=== PATIENT | male | born 1955 | race Caucasian/White ===

== ENCOUNTER 2024-05-06 04:04 | Inpatient (IN) | payer MEDICARE, OTHER, SELFPAY ==
[2024-05-06] VITALS (81 sets, daily range): BP systolic 97–135; BP diastolic 54–97; BMI 23.0
--- NOTE | 2024-05-06 02:20 | ED.GENMED ---
History of Present Illness
General
Chief Complaint: Chest Pain
Source: patient and ambulance crew
Exam Limitations: none
Time Seen by Provider: 05/06/24 02:13
Nursing documentation reviewed up to this point in time: agreed with
History of Present Illness
History of Present Illness:
Pleasant 69-year-old male presents with chest pain that began around 11 PM last evening. He states that the pain did not radha so he called 911. He lives alone. Upon arrival, patient had an EKG which showed a STEMI. It was transmitted to us and
a STEMI alert was called. Patient received aspirin and nitroglycerin which seemed to help his symptoms. Patient states that he saw a founder and chief technical officer and had a nuclear stress test years ago but is unsure of the details. Patient was a smoker having
quit in December. He has COPD. He also has hypercholesterolemia, BPH, and several episodes of pneumonia.
Review of Systems
Review of Systems
Allergies reviewed?: Yes
All Other Systems: ROS reviewed and negative except as documented in HPI and ROS
Constitutional: Reports no symptoms
EENT: Reports no symptoms
Respiratory: Reports no symptoms
Cardiac: Reports chest pain
ABD/GI: Reports no symptoms
: Reports no symptoms
Musculoskeletal: Reports no symptoms
Skin: Reports no symptoms
Neurological: Reports no symptoms
Endocrine: Reports no symptoms
Hematologic/Lymphatic: Reports no symptoms
Psychiatric: Reports no symptoms
Phy Exam
General Physical Exam
General Presentation: well appearing and mild distress
General Skin: warm and dry
General Habitus: normal
General Mental: alert
General Hydration: appears well hydrated
ENT Exam
ENT Exam: EOMI, pharynx normal, neck supple and normocephalic
Eye Exam
Eye Exam: PERRL, cornea clear and conjunctiva normal
Cardiovascular Exam
Cardiovascular Exam: regular rate/rhythm, no edema, no murmur and normal peripheral pulses
Pulmonary Exam
Pulmonary Exam: lungs clear, no respiratory distress, no rales, no crackles, no rhonchi, no stridor, no wheezing and no cough
Gastrointestinal Exam
Gastrointestinal Exam: normal bowel sounds, non tender, soft, no organomegaly, no pulsatile mass and non distended
Neurological Exam
Neurological Exam: alert, oriented x3, no motor deficits and speech normal
Musculoskeletal Exam
Musculoskeletal Exam: full ROM and no edema
Skin Exam
Skin Exam: normal color, warm/dry, no rash and no petechia
Psychiatric Exam
Psychiatric Exam: normal mood/affect
Scores
Heart Score for Chest Pain Patients
STEMI patient?: Yes
Course
Orders/Labs/Results
Orders:
Orders
05/06/24 02:12
Electrocardiogram (*1) Urgent
Reason for Study: Chest Pain
05/06/24 02:13
EKG- Treatment ONCE
05/06/24 02:16
Complete Blood Count/With Diff Urgent
Comprehensive Metabolic Panel Urgent
Prothrombin Time Urgent
Troponin I Urgent
05/06/24 02:29
Fentanyl Citrate/Pf [Sublimaze] 100 mcg .ROUTE .STK-MED ONE
Heparin 10,000 units .ROUTE .STK-MED ONE
Heparin 1000 Units/500 ml [Heparin] 1,000 units in 500 ml .ROUTE .STK-MED
Heparin Sodium,Porcine/Ns/Pf [Heparin 2000 Units/1000 ml] 2,000 unit in 1,000 ml .ROUTE .STK-MED
Lidocaine HCl/Pf [Xylocaine-Mpf 1% Vial] 50 mg .ROUTE .STK-MED ONE
Midazolam HCl [Versed] 2 mg .ROUTE .STK-MED ONE
Verapamil Injectable [Isoptin/Verapamil Injection] 5 mg .ROUTE .STK-MED ONE
05/06/24 02:30
Nitroglycerin [Tridil] 1,500 mcg .ROUTE .STK-MED ONE
05/06/24 02:48
Aspirin Chewable [Low Strength Aspirin] 162 mg .ROUTE .STK-MED ONE
Heparin 5,000 units .ROUTE .STK-MED ONE
Ticagrelor [Brilinta] 180 mg .ROUTE .STK-MED ONE
05/06/24 03:05
Amiodarone [Cordarone] 150 mg .ROUTE .STK-MED ONE
05/06/24 03:10
NORepinephrine 4 MG/250 ML [Levophed] 4 mg in 250 ml .ROUTE .STK-MED
05/06/24 03:17
EPTIFIBATIDE 75 mg/100 mL [Integrilin] 75,000 mcg in 100 ml .ROUTE .STK-MED
Eptifibatide [Integrilin] 20 ml .ROUTE .STK-MED
05/06/24 03:19
Phenylephrine HCl/0.9% NaCl [Tristian-Synephrine] 1,000 mcg .ROUTE .STK-MED ONE
05/06/24 03:51
Admit Patient As Directed
Co-Sign Provider:
Level of Care: Inpatient admission
Assign to:: CVICU
Physician / Group: Rolan/SHERLEY
Diagnosis: Lateral STEMI
Patient Condition: Critical
Reason for Hospitalization: Lateral STEMI
Expected length of stay greater than two midnights?: Yes
ELOS- Estimated Length of Stay in days: 5
I certify the patient meets the requirements for IP care: Yes
Reason for Overnight Stay: Standard of Care
Code Status As Directed
Resuscitation Status: Full Code
CARDIAC REHAB CONSULT Routine
Co-Sign Provider:
Type of Cardiac Rehab Referral: Outpatient
Diagnosis: STEMI
Date of Diagnosis/Surgery: 05/06/2024
Referring Provider: Meek Gongora
Acetaminophen [Tylenol] 650 mg PO Q4HPRN PRN
Fentanyl Citrate/Pf [Sublimaze] 50 mcg IV [id number] PRN
Midazolam HCl [Versed] 1 mg IV Q5MPRN PRN
Morphine Sulfate 2 mg IV Q1HPRN PRN
Nitroglycerin Sublingual [Nitrostat (Sublingual)] 0.4 mg SL [id number] PRN
Oxycodone/Acetaminophen [Percocet 5/325] 1 tablet PO Q4HPRN PRN
Activity As Directed
Activity Level: Out of Bed- Chair
Comment: bed/chair rest for 2 hours then out of bed ad belen
Power Distributor Procedure As Directed
Cardiac Cath Procedure: percutaneous coronary intervention
Intake/ Output As Directed
Frequency: Per unit guidelines
Notify MD As Directed
Notify physician if: immediately for chest pain or bleeding from access site(s)
Pressure Bag and Transducer As Directed
Radial Artery Hemostasis Method As Directed
Instructions:: 3 mL out at 2 hour posts placement of band
3 mL out at 2 1/2 hours post placement of band
3 mL out at 3 hours post placement of band
Off at 3 1/2 hours post placement of band
If any oozing or hemotoma occurs:: re-inflate band and call provider
Site Checks As Directed
Check access site for bleeding/hematoma: Yes
Comment: on arrival, Q15min x4, Q30min x2, Q1 hr x2, Q2 hr x2, Q4 hr or per
protocol
Vascular Checks As Directed
Location: distal to access site - pulse check
Frequency: Other
Comment: on arrival, Q15min x4, Q30min x2, Q1 hr x2, Q2 hr x2, Q4 hr or per protocol
Venous Foot Pumps As Directed
Location: Bilateral feet
Vital Signs As Directed
Frequency: Other
Additional Instructions:: on arrival, Q15min x4, Q30min x2, Q1 hr x2, Q2 hr x2, then Q4 hr or per unit
protocol
05/06/24 03:52
DX Deep Vein Thrombosis Video Routine
05/06/24 04:00
0.9% Sodium Chloride 1000 ml [Nss] 1,000 ml IV PER PROTOCOL
Infusion rate in mL/kg/hr:: 1.5
Infusion rate in mL/hr:: 115
Duration of infusion (hours):: 5
Flush (0.9% Sodium Chloride) [Flush (Nss)] See Dose Instructions IV PER PROTOCOL
05/06/24 05:12
Basic Metabolic Panel IN AM
Complete Blood Count/No Diff IN AM
Glycohemoglobin (HgbA1c) Routine
Troponin I Q6H
05/06/24 06:00
Echo 2D MMode Color/Doppler IN AM
Reason for Study: Lateral STEMI
Electrocardiogram (*1) IN AM
Reason for Study: Other
Other Reason for Exam: s/p intervention
Cholesterol Lowering
At Your Request: Full Participation
Cholesterol Lowering: Sodium, 2 Gram
05/06/24 08:00
Aspirin Chewable [Low Strength Aspirin] 81 mg PO DAILY
Atorvastatin [Lipitor] 40 mg PO DAILY
Finasteride [Proscar] 5 mg PO DAILY
Olodaterol HCl [Striverdi Respimat] 2 puff INH R DAILY
Ticagrelor [Brilinta] 90 mg PO BID
Tiotropium [place] 2.5 Mcg [Spiriva Respimat 2.5 Mcg] 2 puff INH R DAILY
05/06/24 10:00
Troponin I Q6H
05/06/24 11:00
EPTIFIBATIDE 75 mg/100 mL [Integrilin] 75,000 mcg in 100 ml IV ORDERED RATE
05/06/24 16:00
Troponin I Q6H
Abnormal Lab Results
05/06/24 05/06/24
02:16 03:30
RBC 4.57 L 10^6/uL
(4.70-6.10)
MCH 31.7 H pg
(27.0-31.0)
Absolute Monos (auto) 0.8 H 10^3/uL
(0.1-0.6)
Monocytes % 12.0 H %
(1.7-9.3)
BUN 26 H mg/dl
(9-20)
Creatinine 0.6 L mg/dL
(0.7-1.3)
Glucose 123 H mg/dl
(70-99)
Troponin I 0.290 H* ng/ml
POC ACT Low Range 324 H Seconds
(116-155)
05/06/24 02:16
05/06/24 02:16
Vital Signs
Initial and Last Documented VS:
Initial Vital Signs
BP
123/81
05/06/24 02:10
Last Documented Vital Signs
Temp Pulse Resp BP Pulse Ox
97.8 F 61 22 102/63 97
05/06/24 05:57 05/06/24 06:40 05/06/24 06:40 05/06/24 06:40 05/06/24 06:40
*Critical Care Note
Total Time (30-74mins, 75-104mins- exclusive of procedures): Not Applicable
comment:
Critical care statement: A total of 15 minutes of critical care time was provided for this patient. This time is separate from time utilized to perform the aforementioned documented procedures. Aggregate critical care time includes only time
during which I was engaged in work directly related to the patient's care, as described above, whether at the bedside or elsewhere in the Emergency Department.
ED Attending Note
-
Portions of this chart may have been created with voice recognition software.� Occasional wrong word or��sound alike� substitutions may have occurred due to the inherent limitations of voice recognition software.
Discharge Plan
Departure
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
Date of Disposition: 05/06/24
Time of Disposition: 02:20
Admit to: blood bank laboratory technician
Presentation/result/management discussed w/ accepting MD/DO: Hospitalist
Condition: Good
Discharge Problem:
Acute ST elevation myocardial infarction (STEMI) of inferior wall
Interventions
Interventions:
*General Assessment Last Done: 05/06/24 02:13
*Neglect/Abuse Screening Last Done: 05/06/24 02:27
ED- Fall Risk Assessment Last Done: 05/06/24 02:25
*Nursing Disposition Last Done: 05/06/24 02:36
ED- Cardiac Assessment Last Done: 05/06/24 02:23
Discharge Date and Time
Discharge Date/Time: 05/06/24 02:36
[2024-05-06 02:22] LABS: % Basophils 0.3 % (0-2); % Eosinophils 4.7 % (0-6); % Immature Granulocytes 0.2 % (0-0.5); % Lymphocytes 25.7 % (20.5-51.1); % Neutrophils 57.1 % (42.2-75.2); Absolute Eosinophils 0.3 10^3/uL (0-0.7); Absolute Lymphocytes 1.6 10^3/uL (1.2-3.4); Absolute Monocytes 0.8 10^3/uL (0.1-0.6); Absolute Neutrophils 3.6 10^3/uL (1.4-6.5); Hematocrit 41.1 % (39.0-52.0); Hemoglobin 14.5 g/dL (13.0-18.0); Mean Corp Hgb Conc. 35.3 g/dL (33.0-37.0); Mean Corpuscular Hgb 31.7 pg (27.0-31.0); Mean Corpuscular Volume 89.9 fL (80.0-94.0); Mean Platelet Volume 9.7 fL (7.4-10.4); Nucleated Red Blood Cells % 0 % (-); Platelet Count 174 10^3/uL (130-400); Red Blood Cell Count 4.57 10^6/uL (4.70-6.10); Red Cell Dist. Width 13.5 % (11.5-14.5); White Blood Cell Count 6.2 10^3/uL (4.8-10.8)
--- NOTE | 2024-05-06 02:25 | HPS.HSE ---
Family Physician
-
Family Physician: Meek Mcmahon M.D.
Chief Complaint
-
Chest Pain
History of Present Illness
69-year-old male with a past medical history of hypertension, hyperlipidemia, tobacco abuse having recently quit after an episode of pneumonia, COPD, BPH and PAD presenting with several hours of chest pain. The patient could not describe exactly
how many hours of chest pain he had been having. He rates the pain at 5/10. EMS was called and performed an EKG en route to the hospital. This EKG was concerning for inferior STEMI. On arrival, EKG was repeated, confirming inferior ST elevation
myocardial infarction. Cardiac Cleaner Furniture was activated for emergent cardiac catheterization.
Recent paperwork from a medical visit was reviewed. The patient was recently started on a course of Augmentin and had previously completed a Medrol Dosepak. He cannot recall why he was given a course of steroids.
Medical History
Past Medical History
Past Medical History: Reports COPD, HTN, Hypercholesterolemia and Other (PAD, PNA, BPH)
Past Surgical History: Reports None
Social History
Tobacco: Former Smoker
Alcohol: None
Drug: None
Family History
Family History: Not pertinent
Allergies / Home Medications
Allergies reflects when Allergies were last updated in [facility].
Home Medications with original date entered in [facility]
Allergy/Medication List:
Home Medications:
Atorvastatin 40 mg daily.
Aspirin 81 mg daily.
Cilostazol 50 mg BID.
Finasteride 5 mg daily.
Umeclidium-Vilanterol inhaler 1 puff daily.
Tamsulosin 0.4 mg daily.
Amoxicillin-Clavulanate
Allergies:
NKDA
Review of Systems
-
History Source: Patient
A 12 point ROS was completed and negative except as noted: Yes
Constitutional: Reports No Symptoms
EENT: Reports No Symptoms
Respiratory: Reports No Symptoms
Cardiac: Reports Chest Pain
Abdomen/GI: Reports No Symptoms
: Reports No Symptoms
Musculoskeletal: Reports No Symptoms
Skin: Reports No Symptoms
Neurological: Reports No Symptoms
Endocrine: Reports No Symptoms
Hematologic/Lymphatic: Reports No Symptoms
Psych: Reports No Symptoms
Physical Exam
Vital Signs
Vital Signs
Temp Pulse Resp BP Pulse Ox
36.7 C 63 16 123/81 93
05/06/24 02:13 05/06/24 02:15 05/06/24 02:15 05/06/24 02:13 05/06/24 02:15
Physical Exam
General: Well Developed, Well Nourished, No Apparent Distress, Comfortable and Conversant
HEENT: NormoCephalic, Anicteric, Moist mucous membranes, Atraumatic, Good Dentition, PERRLA, No Ptosis, Nose Appears Normal, Ears Appear Normal and Neck Nontender
Respiratory: Rhonchi, Non Labored Respirations and Decreased Breath Sounds (RLL)
Cardiac: S1/S2 and Regular Rhythm
Breast: Deferred by me
GI: Soft, Non Tender, Non Distended and Normal Bowel Sounds
Rectal: Deferred by Provider
Genito-urinary: Deferred by me
Musculoskeletal: No Clubbing, No Cyanosis and No Edema
Skin: Warm and Dry
Neuro: AO x 3, No Motor Deficits, Nonfocal/grossly intact and Cranial Nerves Intact
Hematologic/Lymphatic: No Lymphadenopathy
Psych: Calm and Intact Judgment/Insight
Laboratory Results
-
05/06/24 02:16
Data Reviewed
-
Medical Tests (Nuc Med, Echo, EKG etc): Image Personally Visualized and interpreted, Report Reviewed by me and Discussed with Physician
Lab Data: Labs Reviewed by me
Old Records: Reviewed
Impression/Plan
-
Impression/Plan: 69 y/o male with HTN, HLD, PAD, tobacco abuse having recently quit after a bout of PNA and subsequent COPD presenting with inferior STEMI.
#STEMI
-Acute.
-Aspirin given by EMS.
-Patient received ticagrelor, nitroglycerin and heparin in the ER.
-Plan to proceed to center medical and lab director for emergent coronary angiography and ad hoc PCI.
-Consent is signed and on the chart.
-Further instructions to follow.
#HTN
-Chronic, stable.
-We will adjust medications post procedure.
#HLD
-Chronic, stable.
-Check lipid panel.
-High dose, high potency statin.
-Goal LDL < 55.
#PAD
-Chronic, stable.
-Continue cilostazole. We will adjust based on LVEF.
#Tobacco abuse/COPD
-Recently quit.
-Currently getting a course of antibiotics (amoxicillin-clavulanate).
-Continue inhaled corticosteroids/long acting bronchodilators.
#PPx
-SCD's for DVT/VTE prophylaxis.
-No role for PPI at this time.
[2024-05-06 02:33] LABS: ALT (SGPT) 31 U/L (0-50); AST (SGOT) 44 U/L (17-59); Albumin 4.1 g/dl (3.5-5.0); Alkaline Phosphatase 70 U/L (38-126); Blood Urea Nitrogen 26 mg/dl (9-20); Calcium 9.5 mg/dl (8.4-10.2); Carbon Dioxide 28 mmol/L (22-30); Chloride 105 mmol/L (98-107); Estimated Creatinine Clearance > 125 ml/min; Glucose 123 mg/dl (70-99); INR 1.07; PT 13.9 Sec (11.4-14.6); Potassium 4.1 mmol/L (3.5-5.1); Sodium 141 mmol/L (135-145); Total Bilirubin 0.6 mg/dl (0.2-1.3); Total Protein 6.9 g/dl (6.3-8.2); eGFR > 60.00
[2024-05-06 03:35] LABS: ACT-LR - POC 324 Seconds (116-155)
--- NOTE | 2024-05-06 03:56 | ITS.CL.ANGIO ---
Model Home Sales Greeter - Angioplasty
Angioplasty
Procedure Report:
CARDIAC CATHETERIZATION REPORT
Date of Procedure: 05/06/2024
Referring: [facility] emergency room.
INDICATION: ST elevation myocardial infarction.
PROCEDURE:
1. Left heart catheterization.
2. Coronary angiography
3. Successful PCI of the proximal left circumflex.
4. Left ventriculography.
5. Initiation of norepinephrine for hemodynamic support.
6. Temporary exchange of 6 [place] sheath for standard arterial line.
ACCESS:
6 [place] right radial artery.
CATHETERS:
1. 5 [place] JR4.
2. 5 [place] JL 3.5.
3. 6 [place] EBU 3.75 guiding catheter.
4. 5 [place] angled pigtail.
HEMODYNAMIC DATA
Weight (kg): 76.7
AO (s/d/x, mmHg): 120/70/92
LV (s/x mmHg): 123/12
LEFT VENTRICULOGRAPHY: Performed in an RAMESH projection. Moderate to severely dilated left ventricle with global hypokinesis and a double density sign consistent with severe lateral wall hypokinesis. Left ventricular ejection fraction estimated at
35%. There is mild mitral regurgitation. There is no aortic valve insufficiency. The aortic root, visualized ascending aorta and ascending aorta appear normal.
CORONARY ANGIOGRAPHY
Dominance: Right.
Left Main: Normal size, bifurcating vessel. There is no coronary artery disease.
LAD: Normal size vessel giving rise to 2 moderate-sized diagonals. There is a 70% stenosis in the mid LAD and between D1 and D2. There is a 40-50% lesion after the takeoff of D2.
Ramus: Congenitally absent.
Circumflex: Large size, nondominant vessel giving rise to 2 obtuse marginals before terminating as a substantially sized AV groove branch. OM1 is a 1.5 mm vessel supplying the proximal lateral wall. OM 2 is a large vessel that supplies much of
the inferolateral wall. There is a 20% lesion in the proximal circumflex. The circumflex artery is acutely occluded in its midsection, immediately proximal to the origin of OM 2.
RCA: Large size, dominant vessel. There are minor luminal irregularities throughout.
INTERVENTION(S)
1. Successful PCI of the acutely occluded mid circumflex (Xience Skypoint 3.5 x 18 ALPA, postdilated with a 3.5 NC balloon throughout, a 4.0 x 12 NC balloon in the mid section and a 4.5 x 8 NC balloon in the proximal margin) with reduction in
stenosis to 0%, restoring UMA-3 flow.
2. Intracoronary nitroglycerin and initiation of active appetite given thrombus burden and generalized slow flow.
3. Exchange of the 6 [place] radial sheath for a standard arterial line.
Narrative:
The decision was made to proceed with percutaneous coronary intervention. The diagnostic catheter was removed over a wire and a 6Fr EBU 3.75 guiding catheter was advanced to the aortic root and seated in the left main coronary artery. Additional
heparin was given and a Power Turn Flex wire was advanced into the distal circumflex. The thrombotic, 100% mid circumflex lesion was predilated with a 2.0 x 12 semi-compliant balloon to 12 alireza.
Immediately after dilation of the semicompliant balloon, UMA-3 flow was restored to the vessel. The patient lapsed into sustained ventricular tachycardia but was maintaining consciousness and a low blood perfusing pressure. I asked the patient to
cough several times. This terminated the VT and the patient lapsed into AIVR with frequent ectopy. This also resulted in relatively persistent hypotension. The patient was given phenylephrine 100 mcg IV x 1 and IV fluids were opened wide. In
spite of these measures, hypotension persisted. Norepinephrine was started at 5 mcg/kg/min. This was uptitrated to 8 then 10 mcg/kg/min with improvement of blood pressure.
The semi-compliant balloon was removed and a Xience Skypoint 3.5 x 18 drug-eluting stent was advanced. The stent was deployed at 12 atmospheres. The stent balloon was removed. A 3.5 x 12 noncompliant balloon was advanced into the stent and the stent
was postdilated to 16 atmospheres. Angiography confirmed holiness of UMA-3 flow with stent expansion and good stent apposition in the distal margin with mall apposition of the proximal margin. A 4.5 x 8 noncompliant balloon was advanced and
the proximal margin of the stent was dilated to 12 alireza. Angiography showed better apposition, though the mid section transition was somewhat abrupt and hazy. A 4.0 x 12 noncompliant balloon was advanced and the mid section of the stent was dilated
to 14 alireza.
Throughout the course of the case, angiography had revealed sluggish flow within the distal circumflex and LAD. The patient was given several doses of intracoronary nitroglycerin with temporary improvement. This seem to be worsened or exacerbated
after every balloon inflation. Given concern for distal microembolization given the highly thrombotic nature of his presentation, the decision was made to start eptifibatide with a double bolus and drip.
Final angiography was performed in orthogonal views, confirming good stent expansion and an excellent angiographic result. The coronary wire was withdrawn and the guide was disengaged from the artery. The catheter was removed over a standard J-wire.
At this time, given the norepinephrine requirement, I elected to attempt exchange of the 6 [place] radial sheath for a standard arterial line. The access wire was readvanced into the radial artery and the 6 [place] sheath was removed. The arterial
line catheter was advanced over the wire and seated in the right radial artery. The vascular band was applied over top of the arterial line which was subsequently sutured into place. We connected the arterial line to the manifold which showed a
good arterial tracing. Unfortunately, over the course of several minutes, it became clear that the artery would continue to ooze around the arterial line. Even after increasing inflation of the vascular band, the use was persistent. Ultimately,
the arterial line was discontinued and the vascular band was repositioned in standard fashion with good hemostasis.
Closure Device: The 6 [place] sheath was exchanged for a standard arterial line. The vascular band was placed over top to provide hemostasis given the size discrepancy between the 2 catheters. Unfortunately, there was too much oozing around the
new catheter. Ultimately, the catheter was removed and the vascular band was secured in standard fashion.
Radiation (mGy): 644.37
DAP (cm2.Gy): 55.37
Fluoroscopy time (minutes): 8.3
Sedation time (minutes): 60
CONCLUSIONS
1. Right dominant circulation with luminal irregularities in the RCA, a 70% stenosis in the mid LAD between D1 and D2 and a 40-50% lesion after the takeoff of D2, a 20% proximal circumflex lesion and an acute occlusion of the mid circumflex
immediately proximal to the origin of OM 2, status post accessible PCI (Xience Skypoint 3.5 x 18 ALPA, postdilated with a 3.5 NC balloon throughout, a 4.0 x 12 NC balloon in the mid section and a 4.5 x 8 NC balloon in the proximal margin) with
reduction in stenosis to 0% and holiness of UMA-3 flow.
2. Normal filling pressures (LVEDP = 12 mmHg at 76.7 kg).
3. 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 Left trickle ejection fraction estimated at 35%.
4. Severe hypotension requiring norepinephrine for blood pressure support.
RECOMMENDATIONS:
1. Expectant management after cardiac catheterization via right approach.
2. Limited weight bearing on the right wrist for one week.
3. Dual antiplatelet therapy with aspirin anticoagulant for at least 12 months, followed by aspirin definitely.
4. Maintain eptifibatide drip for 18 hours.
5. Aggressive risk factor modification including high-dose, high potency statin.
6. Guideline directed medical therapy as hemodynamics will tolerate.
7. Wean norepinephrine.
8. Echocardiogram ordered and pending.
9. Referral to cardiac rehab.
10. Transfer to CVICU.
Copy to: Meek Gastelum M.D.
Meek Gongora, , FACC, FACP
[2024-05-06 05:30] LABS: Hematocrit 37.5 % (39.0-52.0); Hemoglobin 12.5 g/dL (13.0-18.0); Mean Corp Hgb Conc. 33.3 g/dL (33.0-37.0); Mean Corpuscular Hgb 31.5 pg (27.0-31.0); Mean Corpuscular Volume 94.5 fL (80.0-94.0); Mean Platelet Volume 10.6 fL (7.4-10.4); Platelet Count 182 10^3/uL (130-400); Red Blood Cell Count 3.97 10^6/uL (4.70-6.10); Red Cell Dist. Width 13.2 % (11.5-14.5); White Blood Cell Count 9.9 10^3/uL (4.8-10.8)
[2024-05-06 05:56] LABS: Blood Urea Nitrogen 24 mg/dl (9-20); Calcium 9.2 mg/dl (8.4-10.2); Carbon Dioxide 29 mmol/L (22-30); Chloride 104 mmol/L (98-107); Estimated Creatinine Clearance > 125 ml/min; Glucose 147 mg/dl (70-99); Potassium 3.8 mmol/L (3.5-5.1); Sodium 139 mmol/L (135-145); eGFR > 60.00
--- NOTE | 2024-05-06 06:34 | PTCARENOTE ---
Deflated R radial band at 0538 per protocol 3cc out without complication. Deflated at 0608 per protocol 3 cc out. Oozing at site noted. Band reinflated with 5cc. Oozing stopped. CT BALLER TENDER notified. Advised to maintain band at current pressure.
--- NOTE | 2024-05-06 06:36 | PTCARENOTE ---
Received patient at 0440 from feed mill lab technician. Patient on bedrest following cardiac cath. Patient is AOx4, follows commands appropriately, moves all extremities. Pupils are 3mm each react equally and briskly to light. Lung sounds are clear and equal
bilaterally. Patient is on 2L via NC with saO2 at 98%. Heart sounds have a regular rate and rhythm. Patient is SR to SB with occasional PVC noted. Patient has normal palpable radial pulses. The R hand is somewhat cool and pale cap refill noted to be
greater than 2 seconds. Patient has active BS throughout all four quadrants, patient reports they void without difficulty. Patient ordered cholesterol lowering diet with 2g Na restriction. Patient has ecchymotic RUE and LUE with black/red
ecchymosis. Patient has 18G L AC and 18G L wrist. Patient has the following gtts: integrilin@12 and Levo@10. VSS. Patient has no complaints.
--- NOTE | 2024-05-06 06:43 | PTCARENOTE ---
Addendum entered by Chaparro Wren RN 05/06/24 06:59:
Initial assessment at 0440
Original Note:
Received patient at 0440 from labourers. Patient on bedrest following cardiac cath. 2xR Radial bands in place to seal puncture. Patient is AOx4, follows commands appropriately, moves all extremities. Pupils are 3mm each react equally and briskly to
light. Lung sounds are clear and equal bilaterally. Patient is on 2L via NC with saO2 at 98%. Heart sounds have a regular rate and rhythm. Patient is SR to SB with occasional PVC noted. Patient has normal palpable radial pulses. The R hand is
somewhat cool and pale cap refill noted to be greater than 2 seconds. Patient has active BS throughout all four quadrants, patient reports they void without difficulty. Patient ordered cholesterol lowering diet with 2g Na restriction. Patient has
ecchymotic RUE and LUE with black/red ecchymosis. Patient has 18G L AC and 18G L wrist. Patient has the following gtts: integrilin@12 and Levo@10. VSS. Patient has no complaints.
--- NOTE | 2024-05-06 07:08 | W.PN.CD ---
Today's Communication / Plan
-
Slow wean of norepinephrine.
Echocardiogram ordered and pending.
Expectant management post STEMI.
Staged interrogation/PCI of the LAD on Thursday.
Impression / Plan
-
Impression/Plan: 69 y/o male with HTN, HLD, PAD, tobacco abuse having recently quit after a bout of PNA and subsequent COPD presenting with inferior STEMI, found to have acute LCx occlusion, residual LAD disease and combined ischemic/non-ischemic
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
#STEMI
-Acute.
-S/P PCI of the mLCX (Xience Skypoint 3.5 x 18 ALPA, post dilated with a 3.5 NCB throughout, 4.0 NCB in the mid stent and 4.5 NCB in the proximal stent).
-Procedure complicated by VT, terminated by cough. Amiodarone 150 mg and Mg 2g given intraprocedure.
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
-Slow wean of norepinephrine.
-DAPT with aspirin and ticagrelor. Case management consult.
-Eptifabitide @ 2 mcg x 18 hours.
#Residual CAD
-Cath shows tandem 70%, 40-50% mLAD lesions.
-Favor interrogation/revascularization on 05/09/2024.
#Cardiomyopathy
-New diagnosis.
-LVEF = 35% on V-Gram.
-LVEF seems out of proportion to STEMI.
-Wean norepinephrine and start GDMT.
#HTN
-Chronic, stable.
-We will adjust medications as hemodynamics allow.
#HLD
-Chronic, stable.
-Check lipid panel.
-High dose, high potency statin.
-Goal LDL < 55.
#PAD
-Chronic, stable.
-Continue cilostazole. We will adjust based on LVEF.
#Tobacco abuse/COPD
-Recently quit.
-Currently getting a course of antibiotics (amoxicillin-clavulanate).
-Continue inhaled corticosteroids/long acting bronchodilators.
#PPx
-SCD's for DVT/VTE prophylaxis.
-No role for PPI at this time.
#Dispo
-IVU Status.
-Full code.
Subjective/Interval history:
STEMI yesterday.
PCI complicated by hypotension requiring norepinephrine and VT requiring a bolus of amiodarone.
DATA:
Cardiac Catheterization/PCI, 05/06/2024:
CONCLUSIONS
1. Right dominant circulation with luminal irregularities in the RCA, a 70% stenosis in the mid LAD between D1 and D2 and a 40-50% lesion after the takeoff of D2, a 20% proximal circumflex lesion and an acute occlusion of the mid circumflex
immediately proximal to the origin of OM 2, status post accessible PCI (Xience Skypoint 3.5 x 18 ALPA, postdilated with a 3.5 NC balloon throughout, a 4.0 x 12 NC balloon in the mid section and a 4.5 x 8 NC balloon in the proximal margin) with
reduction in stenosis to 0% and adventist of UMA-3 flow.
2. Normal filling pressures (LVEDP = 12 mmHg at 76.7 kg).
3. 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 Left trickle ejection fraction estimated at 35%.
4. Severe hypotension requiring norepinephrine for blood pressure support.
Physical Exam
Vital Signs/Labs
Vital Signs
Temp Pulse Resp BP Pulse Ox
36.6 C 61 22 102/63 97
05/06/24 05:57 05/06/24 06:40 05/06/24 06:40 05/06/24 06:40 05/06/24 06:40
05/04/24 05/05/24 05/06/24
11:59 11:59 11:59
Actual Weight 77 kg
05/06/24 05:12
05/06/24 05:12
PT 13.9 Sec (11.4-14.6) 05/06/24 02:16
INR 1.07 05/06/24 02:16
LAB Results
05/06/24 05/06/24
02:16 05:12
Troponin I 0.290 H* 10.900 H* D
Physical Exam
Constitutional: No acute distress and Comfortable
EENT: Anicteric and Moist mucous membranes
Cardiovascular: Rhythm & rate is regular, Pedal edema is absent, JVD pressure is normal, S1S2 is normal and Murmur/rub/gallop absent
Respiratory: Respiratory effort normal, Wheeze Absent, Crackles Absent and Rhonchi Present
GI: Soft, Distention absent, Flat, Non tender and Normal bowel sounds
Neuro/Psych: AO x 3
Other: Cath Site (Right radial access site is under a vascular band.)
Data Reviewed
-
Date of Service: May 06, 2024
Medical Decision Making: Reviewed Test Results, Tests Ordered, Independent Historian Assessment, Test Interpretation and Review of Case with other Provider
EKG: Tracing Personally Visualized and interpreted and Report Reviewed by me
Echo: Ordered by me
Medical Tests (PFT, Pathology etc): Image Personally Visualized and interpreted, Report Reviewed by me and Discussed with Patient
Labs: Labs Reviewed by me and Labs Ordered by me
Old Records: Reviewed
[2024-05-06] MEDS: STRIVERDI RESPIMAT 2 PUFF INH (07:27)
[2024-05-06] MEDS: SPIRIVA RESPIMAT 2.5 MCG 2 PUFF INH (07:28)
--- NOTE | 2024-05-06 07:45 | PTCARENOTE ---
Assumed care of patient. Walking rounds completed with previous RN. Pt assessed while he was lying in bed. Pt alert and oriented x4. Pt denies pain, shortness of breath, and nausea. Pt reports anxiety, emotional support provided. SR with frequent
PVCs and 12 beat run VT, Dr. Gongora notified. HR in the 70s. BP supported with levophed, titrated to support MAP >65 as per orders. Bilateral radial pulses palpable. Bilateral DP pulses present via doppler. +1 edema in b/l ankles and right wrist.
POX 98% on 2L NC. Pt states he wears 2L NC O2 at home when sleeping. Increased anxiety when discussing removing o2 at this time, titrated to 1L for comfort. Abdomen soft, round, nontender. +BS. Pt reports diminished appetite. Pt voided small amount
of yellow urine in the urinal. Reports small frequent urination at home as well. Right wrist cath site with TR band x2 in place. Upper TR band with no air, removed. Pt tolerated. No bleeding from site noted. Lower TR band intact and 3ml air
released. No bleeding noted. B/l hands and arms ecchymotic. Left arm 18g PIV x2 intact. Integrilin gtt infusing at 2mcg/kg/min. Levo titrating as per orders. See MAR for medication administration. See worklist for complete nursing assessment. Plan
of care reviewed and patient in agreement.
[2024-05-06] MEDS: LOW STRENGTH ASPIRIN 81 MG PO (07:47)
[2024-05-06] MEDS: BRILINTA 90 MG PO ×2 (07:47→20:10)
[2024-05-06] MEDS: PROSCAR 5 MG PO (07:47)
[2024-05-06] MEDS: LIPITOR 40 MG PO (07:47)
[2024-05-06 09:31] LABS: HDL Cholesterol 54 mg/dl; Total Cholesterol 75 mg/dl (50-199)
[2024-05-06 09:43] LABS: Triglyceride < 30 mg/dl (10-149)
--- NOTE | 2024-05-06 10:05 | CARDSERVLU ---
Echocardiogram with Lumason completed after protocol screening completed. Allergies verified.
Patent IV site: ___left AC__
IV site flushed with 0.9% NaCl pre and post administration.
Diluted bolus method utilized to enhance visualization of ventricular galvin.
Total volume given: _6.0___ mL
Patient tolerated all procedures well without complications.
[2024-05-06 10:07] LABS: Glycohemoglobin (HgbA1c) 5.3 % (4.0-5.6)
[2024-05-06] MEDS: INTEGRILIN 100 IV ×2 (10:29→18:06)
--- NOTE | 2024-05-06 10:50 | PTCARENOTE ---
Cath FISHER CRAB at bedside to visualize right radial cath site. Area ecchymotic. Good pulse. 2mL air released from TR band as per her order. No oozing noted. Pt tolerated.
--- NOTE | 2024-05-06 11:35 | CM ---
Reviewed chart. Met with Mr. Alonso to review discharge plans. He states prior to admission he resides alone in a spilt level home without any steps to enter. He states he has eight steps to get to each level. He states prior to admission he was
independent with ambulation and adls. He states he has home 02 that he uses at night. He states he has a prescription plan with [employer]. Telephone call to [employer] to check on his coverage for Brilinta 90 mg po bid. He has meet his deductible and
his co-pay would be $100.00 a month. If he goes to [facility] or does mail order his co-pay would be $69.63. Medical work-up in progress. The discharge plan is to return home when medically stable.
--- NOTE | 2024-05-06 12:00 | PTCARENOTE ---
received report from previous RN. pt resting in bed, AAOx3- denies pain. SR with pvcs on telemetry heart rate in 60s. radial pulses palpable. DP pulses dopplered. pt reports neuropathy in lower extremities. +1 edema in lower extremities. Right
radial TR band intact, ecchymotic. Pt on 1L nasal cannula, sat 95-97%. lung sounds clear. active bowel sounds. tolerating diet. voiding in urinal clear yellow urine. Integrilin infusing per order. see worklist for full nursing assessment and
interventions.
[2024-05-06] MEDS: TYLENOL 650 MG PO (15:35)
[2024-05-06] MEDS: PEPCID 20 MG PO (15:36)
--- NOTE | 2024-05-06 16:00 | PTCARENOTE ---
vitals stable. troponin drawn and sent. pt reports mild stiff neck- prn tylenol given. TR band removed, no bleeding noted, dressing placed. right hand/arm ecchymotic, +radial pulse. no further changes in assessment noted.
--- NOTE | 2024-05-06 20:30 | PTCARENOTE ---
Patient received resting in bed watching television. Patient A+A+Ox3. No neurological deficits noted. No c/o headache, dizziness or lightheadedness. Brilinta 90 mg PO given. Patient continues on Integrilin gtt. O2 2L via NC. SaO2 96%. No c/o
SOB. Sinus Bradycardia to Sinus Rhythm. Occasional PVC. Heart rate 50-60's. Blood pressure 123/81 (91). Patient with no c/o chest pain, pressure or discomfort. Normoactive bowel sounds. No BM. No c/o nausea. No vomiting. Voiding without
difficulty. Patient with no c/o back or flank pain. Patient s/p Right Radial TR Band - Positive, strong right radial pulse - Right hand, wrist, forearm ecchymotic - Positive circulation, sensation and mobility to right upper extremity - No c/o
pain, discomfort, numbness or tingling. Bilateral pedal/ankle region with edema. Afebrile. Assessment as documented.
[2024-05-07] VITALS (11 sets, daily range): BP systolic 90–121; BP diastolic 54–73; BMI 22.0
--- NOTE | 2024-05-07 01:00 | PTCARENOTE ---
Patient sleeping without difficulty. No further changes from previous assessment.
--- NOTE | 2024-05-07 05:15 | PTCARENOTE ---
Patient A+A+Ox3. No neurological deficits noted. AM lab work collected and sent. Patient given CHG bath and linens changed. OOB to chair. Standing scale weight 73.6 kg. No c/o pain or discomfort. No c/o headache, dizziness or lightheadedness.
Assessment/Interventions as documented.
[2024-05-07 05:47] LABS: Blood Urea Nitrogen 16 mg/dl (9-20); Calcium 8.7 mg/dl (8.4-10.2); Carbon Dioxide 28 mmol/L (22-30); Chloride 107 mmol/L (98-107); Estimated Creatinine Clearance 121 ml/min; Glucose 89 mg/dl (70-99); Magnesium 2.1 mg/dl (1.6-2.3); Potassium 4.1 mmol/L (3.5-5.1); Sodium 138 mmol/L (135-145); eGFR > 60.00
[2024-05-07] MEDS: SPIRIVA RESPIMAT 2.5 MCG 2 PUFF INH (07:46)
[2024-05-07] MEDS: STRIVERDI RESPIMAT 2 PUFF INH (07:47)
[2024-05-07] MEDS: LIPITOR 40 MG PO (08:50)
[2024-05-07] MEDS: LOW STRENGTH ASPIRIN 81 MG PO (08:50)
[2024-05-07] MEDS: PROSCAR 5 MG PO (08:51)
[2024-05-07] MEDS: BRILINTA 90 MG PO ×2 (08:51→19:37)
[2024-05-07] MEDS: PEPCID 20 MG PO (08:51)
--- NOTE | 2024-05-07 09:18 | PTCARENOTE ---
Patient received from beater out resting comfortably oob in chair, AAO X 3, denies pain. NSR via cm, SaO2 @ 97% on RA. R wrist procedural site cdi, ecchymotic, pulse palp. Assisted w/rolling walker to bathroom, am care performed. Settled to chair,
breakfast obtained. Patient updated to plan of care for the day, in agreement. See work list for full assessment and interventions performed.
--- NOTE | 2024-05-07 09:25 | W.PN.CD ---
Today's Communication / Plan
-
Continue DAPT
Blood pressures remain relatively low and limits meds
-Plan interrogation/revascularization [place] 05/09/2024.
Impression / Plan
-
Impression/Plan: 69 y/o male with HTN, HLD, PAD, tobacco abuse having recently quit after a bout of PNA and subsequent COPD presenting with inferior STEMI, found to have acute LCx occlusion, residual LAD disease and combined ischemic/non-ischemic
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
#STEMI
-Acute.
-S/P PCI of the mLCX (Xience Skypoint 3.5 x 18 ALPA, post dilated with a 3.5 NCB throughout, 4.0 NCB in the mid stent and 4.5 NCB in the proximal stent).
-Procedure complicated by VT, terminated by cough. Amiodarone 150 mg and Mg 2g given intraprocedure.
- residual LAD disease. Plan for PCI LAD 05/09/24
-DAPT with aspirin and ticagrelor.
-BP and HR limiting BB,or SUKHWINDER at this time
#Residual CAD
-Cath shows tandem 70%, 40-50% mLAD lesions.
-Plan interrogation/revascularization on 05/09/2024.
#Cardiomyopathy
-New diagnosis.
-LVEF = 35% on V-Gram.
-Technically difficult echo. Estimated ejection fraction 40%.
-LVEF seems out of proportion to STEMI.
- GDMT. As blood pressure tolerates.
#HTN
-Chronic, stable.
-We will adjust medications as hemodynamics allow.
#HLD
-Chronic, stable.
-Check lipid panel.
-High dose, high potency statin.
-Goal LDL < 55.
#PAD
-Chronic, stable.
-Continue cilostazole. We will adjust based on LVEF.
#Tobacco abuse/COPD
-Recently quit.
-Currently getting a course of antibiotics (amoxicillin-clavulanate).
-Continue inhaled corticosteroids/long acting bronchodilators.
Subjective/Interval history:
STEMI yesterday.
PCI complicated by hypotension requiring norepinephrine and VT requiring a bolus of amiodarone.
DATA:
Cardiac Catheterization/PCI, 05/06/2024:
CONCLUSIONS
1. Right dominant circulation with luminal irregularities in the RCA, a 70% stenosis in the mid LAD between D1 and D2 and a 40-50% lesion after the takeoff of D2, a 20% proximal circumflex lesion and an acute occlusion of the mid circumflex
immediately proximal to the origin of OM 2, status post accessible PCI (Xience Skypoint 3.5 x 18 ALPA, postdilated with a 3.5 NC balloon throughout, a 4.0 x 12 NC balloon in the mid section and a 4.5 x 8 NC balloon in the proximal margin) with
reduction in stenosis to 0% and nondenominational of UMA-3 flow.
2. Normal filling pressures (LVEDP = 12 mmHg at 76.7 kg).
3. 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 Left trickle ejection fraction estimated at 35%.
4. Severe hypotension requiring norepinephrine for blood pressure support.
Physical Exam
Vital Signs/Labs
Vital Signs
Temp Pulse Resp BP Pulse Ox
98 F 69 16 101/61 97
05/07/24 07:41 05/07/24 09:04 05/07/24 07:47 05/07/24 08:44 05/07/24 09:07
05/06/24 05/07/24 05/08/24
06:59 06:59 06:59
Actual Weight 77 kg 73.6 kg
05/06/24 05:12
05/07/24 04:57
PT 13.9 Sec (11.4-14.6) 05/06/24 02:16
INR 1.07 05/06/24 02:16
Magnesium 2.1 mg/dl (1.6-2.3) 05/07/24 04:57
Triglycerides < 30 mg/dl (10-149) 05/06/24 05:12
LDL Cholesterol, Calc mg/dl 05/06/24 05:12
VLDL Cholesterol, Calc mg/dl (0-30) 05/06/24 05:12
HDL Cholesterol 54 mg/dl 05/06/24 05:12
LAB Results
05/06/24 05/06/24 05/06/24
02:16 05:12 10:28
Troponin I 0.290 H* 10.900 H* D 62.500 H* D
05/06/24
15:46
Troponin I 51.800 H*
Physical Exam
Constitutional: No acute distress
Cardiovascular: Rhythm & rate is regular and Other (radial cath site is fine)
Respiratory: Respiratory effort normal
GI: Soft
Neuro/Psych: Alert
Data Reviewed
-
Date of Service: May 07, 2024
Medical Decision Making: Reviewed Test Results
EKG: Report Reviewed by me
Echo: Report Reviewed by me
X-Ray/CT/US/MRI/NUC/PET: Report Reviewed by me
Medical Tests (PFT, Pathology etc): Report Reviewed by me
--- NOTE | 2024-05-07 11:43 | PTCARENOTE ---
VS obtained, assessment stable. Patient resting comfortably, denies pain. Lunch ordered.
--- NOTE | 2024-05-07 16:23 | PTCARENOTE ---
VS obtained, assessment unchanged. Patient oob, ambulating ad belen, denies pain. For transfer to IVU, updated.
[2024-05-08 04:21] VITALS: BP 104/61
[2024-05-08] MEDS: TYLENOL 650 MG PO ×2 (04:26→19:32)
[2024-05-08 05:14] LABS: Blood Urea Nitrogen 21 mg/dl (9-20); Calcium 8.3 mg/dl (8.4-10.2); Carbon Dioxide 30 mmol/L (22-30); Chloride 107 mmol/L (98-107); Estimated Creatinine Clearance 104 ml/min; Glucose 86 mg/dl (70-99); Potassium 3.9 mmol/L (3.5-5.1); Sodium 140 mmol/L (135-145); eGFR > 60.00
--- NOTE | 2024-05-08 07:03 | W.PN.CD ---
Today's Communication / Plan
-
-Plan interrogation/revascularization on 05/09/2024.
Impression / Plan
-
Impression/Plan: 69 y/o male with HTN, HLD, PAD, tobacco abuse having recently quit after a bout of PNA and subsequent COPD presenting with inferior STEMI, found to have acute LCx occlusion, residual LAD disease and combined ischemic/non-ischemic
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
#STEMI
-Acute.
-S/P PCI of the mLCX (Xience Skypoint 3.5 x 18 ALPA, post dilated with a 3.5 NCB throughout, 4.0 NCB in the mid stent and 4.5 NCB in the proximal stent).
-Procedure complicated by VT, terminated by cough. Amiodarone 150 mg and Mg 2g given intraprocedure.
- residual LAD disease. Plan for PCI LAD 05/09/24
-DAPT with aspirin and ticagrelor.
-BP and HR limiting BB,or SUKHWINDER at this time
#Residual CAD
-Cath shows tandem 70%, 40-50% mLAD lesions.
-Plan interrogation/revascularization on 05/09/2024.
#Cardiomyopathy
-New diagnosis.
-LVEF = 35% on V-Gram.
-Technically difficult echo. Estimated ejection fraction 40%.
-LVEF seems out of proportion to STEMI.
- GDMT. As blood pressure tolerates.
#HTN
-Chronic, stable.
-We will adjust medications as hemodynamics allow.
#HLD
-Chronic, stable.
-Check lipid panel.
-High dose, high potency statin.
-Goal LDL < 55.
#PAD
-Chronic, stable.
-Continue cilostazole. We will adjust based on LVEF.
#Tobacco abuse/COPD
-Recently quit.
-Currently getting a course of antibiotics (amoxicillin-clavulanate).
-Continue inhaled corticosteroids/long acting bronchodilators.
Subjective/Interval history:
STEMI yesterday.
PCI complicated by hypotension requiring norepinephrine and VT requiring a bolus of amiodarone.
DATA:
Cardiac Catheterization/PCI, 05/06/2024:
CONCLUSIONS
1. Right dominant circulation with luminal irregularities in the RCA, a 70% stenosis in the mid LAD between D1 and D2 and a 40-50% lesion after the takeoff of D2, a 20% proximal circumflex lesion and an acute occlusion of the mid circumflex
immediately proximal to the origin of OM 2, status post accessible PCI (Xience Skypoint 3.5 x 18 ALPA, postdilated with a 3.5 NC balloon throughout, a 4.0 x 12 NC balloon in the mid section and a 4.5 x 8 NC balloon in the proximal margin) with
reduction in stenosis to 0% and episcopal of UMA-3 flow.
2. Normal filling pressures (LVEDP = 12 mmHg at 76.7 kg).
3. 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 Left trickle ejection fraction estimated at 35%.
4. Severe hypotension requiring norepinephrine for blood pressure support.
Physical Exam
Vital Signs/Labs
Vital Signs
Temp Pulse Resp BP Pulse Ox
98.4 F 73 16 104/61 93
05/08/24 04:00 05/08/24 04:21 05/08/24 04:00 05/08/24 04:21 05/07/24 22:58
05/07/24 05/08/24 05/09/24
06:59 06:59 06:59
Actual Weight 73.6 kg
05/06/24 05:12
05/08/24 04:24
PT 13.9 Sec (11.4-14.6) 05/06/24 02:16
INR 1.07 05/06/24 02:16
Magnesium 2.1 mg/dl (1.6-2.3) 05/07/24 04:57
Triglycerides < 30 mg/dl (10-149) 05/06/24 05:12
LDL Cholesterol, Calc mg/dl 05/06/24 05:12
VLDL Cholesterol, Calc mg/dl (0-30) 05/06/24 05:12
HDL Cholesterol 54 mg/dl 05/06/24 05:12
LAB Results
05/06/24 05/06/24 05/06/24
02:16 05:12 10:28
Troponin I 0.290 H* 10.900 H* D 62.500 H* D
05/06/24
15:46
Troponin I 51.800 H*
Physical Exam
Constitutional: No acute distress
Cardiovascular: Rhythm & rate is regular
Respiratory: Respiratory effort normal
GI: Soft
Neuro/Psych: Alert
Other: Cath Site (fine)
Data Reviewed
-
Date of Service: May 08, 2024
Medical Decision Making: Reviewed Test Results and Review of Case with other Provider (reviewed issues with nurse)
Medical Tests (PFT, Pathology etc): Report Reviewed by me
Labs: Labs Reviewed by me
[2024-05-08] MEDS: SPIRIVA RESPIMAT 2.5 MCG 2 PUFF INH (07:10)
[2024-05-08] MEDS: STRIVERDI RESPIMAT 2 PUFF INH (07:11)
[2024-05-08 08:01] VITALS: BP 118/77
[2024-05-08] MEDS: PROSCAR 5 MG PO (08:19)
[2024-05-08] MEDS: BRILINTA 90 MG PO ×2 (08:19→19:33)
[2024-05-08] MEDS: LOW STRENGTH ASPIRIN 81 MG PO (08:19)
[2024-05-08] MEDS: LIPITOR 40 MG PO (08:19)
[2024-05-08] MEDS: TOPROL XL 12.5 MG PO (08:19)
[2024-05-08] MEDS: PEPCID 20 MG PO (08:21)
[2024-05-08 11:08] VITALS: BP 109/57
--- NOTE | 2024-05-08 14:10 | PTCARENOTE ---
Pt AOx3, no complaints of pain or discomfort. VSS, NSR on tele monitor. Verbalized understanding of being NPO at midnight for prcoedure tomorrow. Call matson within reach.
[2024-05-08 15:26] VITALS: BP 118/81
[2024-05-08 19:25] VITALS: BP 117/65
[2024-05-08 22:26] VITALS: BP 117/84
--- NOTE | 2024-05-08 22:55 | PTCARENOTE ---
Pt rec'd at beginning of shift awake,alert with no c/o cp. Pt reports he does have a little bit of anxiety for several years and is anxious about his health. Emotional support given.
LAC iv site leaking on rounds ,discontinued. lungs diminished but clear. Right radial site ecchymotic from hand to forearm, soft with good pulse.
call matson within reach
[2024-05-09] VITALS (10 sets, daily range): BP systolic 93–116; BP diastolic 59–83
[2024-05-09 03:35] LABS: Blood Urea Nitrogen 25 mg/dl (9-20); Calcium 8.7 mg/dl (8.4-10.2); Carbon Dioxide 25 mmol/L (22-30); Chloride 108 mmol/L (98-107); Estimated Creatinine Clearance 121 ml/min; Glucose 91 mg/dl (70-99); Potassium 4.2 mmol/L (3.5-5.1); Sodium 140 mmol/L (135-145); eGFR > 60.00
[2024-05-09] MEDS: STRIVERDI RESPIMAT 2 PUFF INH (07:48)
[2024-05-09] MEDS: SPIRIVA RESPIMAT 2.5 MCG 2 PUFF INH (07:48)
[2024-05-09 08:00] LABS: ACT-LR - POC > 397 Seconds (116-155)
[2024-05-09] MEDS: TYLENOL 650 MG PO ×2 (08:15→19:37)
[2024-05-09] MEDS: LIPITOR 40 MG PO (08:15)
[2024-05-09] MEDS: PROSCAR 5 MG PO (08:15)
[2024-05-09] MEDS: LOW STRENGTH ASPIRIN 81 MG PO (08:15)
[2024-05-09] MEDS: PEPCID 20 MG PO (08:15)
[2024-05-09] MEDS: BRILINTA 90 MG PO ×2 (08:15→19:36)
[2024-05-09] MEDS: TOPROL XL 12.5 MG PO (08:15)
[2024-05-09] MEDS: FLUSH (NSS) 1 FLUSH IV (08:16)
--- NOTE | 2024-05-09 09:16 | PTCARENOTE ---
Received patient this morning resting in bed. NPO x meds for cardiac cath this morning, denies any chest pain or sob, does complain of anxiety. Right radial cath site [employer] with strong radial pulse, ecchymosis present on forearm. Medicated with
tylenol PO for discomfort LAC at old IV site.
--- NOTE | 2024-05-09 11:32 | CM ---
plan for cath today, and dc to home when medically stable.
--- NOTE | 2024-05-09 15:32 | PTCARENOTE ---
Patient seen by Dr. Villar, taken to technical laboratory asst.
--- NOTE | 2024-05-09 16:37 | ITS.CL.CATH ---
Reverse Unit Operator [facility] - Catheterization
Cardiac Catheterization
Procedure Report:
CARDIAC CATHETERIZATION REPORT
Date of Procedure: 05/09/2024
Referring: Meek Gongora DO
Indication status post lateral STEMI 3 days ago treated with circumflex PCI now for possible further revascularization
HEMODYNAMIC DATA
AO: 102/64
LV: Not done
LEFT VENTRICULOGRAPHY: Not done
CORONARY ANGIOGRAPHY
Dominance: Right
Left Main: Normal
LAD: 60% mid LAD stenosis distal to the origin of D1 and immediately proximal to D2. There is a second area of 40 to 50% mid LAD stenosis distal to D2. D1 is a moderate-sized vessel which is normal. D2 is a medium to large vessel with 60% ostial
and 50% mid stenoses. A very tiny branch of D2 has 90% ostial stenosis.
Circumflex: The circumflex stent placed on 05/06 is widely patent
RCA: Not injected
FloWire assessment: We evaluated the LAD lesions with FloWire. A 6 Serbian EBU 3.75 guide catheter was used. A Mofibo wire was advanced into the distal LAD. iFR measurements were 0.92, 0.90, and 0.91. These results are consistent with
nonflow-limiting disease. Accordingly, stenting was not performed.
Closure Device: None-the procedure was performed via the right radial artery the Donal's test was normal prior to the procedure.
Radiation (mGy): 67
DAP (cm2.Gy): 4.6
Fluoroscopy time: 3.0 minutes
CONCLUSIONS
1: Demonstration of circumflex stent placed on 05/06 to be widely patent
2: Evaluation of residual LAD disease demonstrates nonflow-limiting disease in the LAD proper. Accordingly, stenting was not performed
Copy to: Meek Gongora DO, Meek Gastelum MD
Avelino Villar MD, [facility], [facility]
--- NOTE | 2024-05-09 16:55 | PTCARENOTE ---
Patient returned from the labels molder with radial band in place right wrist. AAO, SR on the monitor. Right hand cool, faint radial pulse palpated, confirmed by doppler. Fingers cool to touch with rapid capillary refill and pulse ox of 92%. Reviewed
post cath restrictions, monitoring VS.
--- NOTE | 2024-05-09 22:00 | PTCARENOTE ---
Pt rec'd at change of shift with R band in place. Radial site R band removed ,cleansed with nss and redressed with 4x4. call matson within reach.
[2024-05-10 04:17] VITALS: BP 92/64
--- NOTE | 2024-05-10 04:40 | PTCARENOTE ---
swelling and redness noted at LAC (old iv site pulled on Thursday night secondary to leaking). no drainage at site presently.
[2024-05-10 05:00] LABS: Hematocrit 38.4 % (39.0-52.0); Hemoglobin 13.4 g/dL (13.0-18.0); Mean Corp Hgb Conc. 34.9 g/dL (33.0-37.0); Mean Corpuscular Hgb 31.8 pg (27.0-31.0); Mean Platelet Volume 10.3 fL (7.4-10.4); Platelet Count 160 10^3/uL (130-400); Red Blood Cell Count 4.22 10^6/uL (4.70-6.10); Red Cell Dist. Width 13.2 % (11.5-14.5); White Blood Cell Count 6.5 10^3/uL (4.8-10.8)
[2024-05-10 05:38] LABS: Blood Urea Nitrogen 29 mg/dl (9-20); Calcium 8.6 mg/dl (8.4-10.2); Carbon Dioxide 24 mmol/L (22-30); Chloride 106 mmol/L (98-107); Estimated Creatinine Clearance 121 ml/min; Glucose 81 mg/dl (70-99); Sodium 138 mmol/L (135-145); eGFR > 60.00
--- NOTE | 2024-05-10 08:00 | PTCARENOTE ---
Assumed care of pt from prev nsg shift; Pt AAOx3 w/no c/o CP or SOB. Pt does c/o 3/10 L mid arm pain at D/C'd IV site. Area noted to be warm & red, w/area tense edema near old insertion site. No signs of drainage from scabbed puncture site. VAT team
notified & in to see pt. Cardiac CTRS, Sara notified as well. Ice pack applied to site & pt advised to elevate on a pillow when sitting. Pt's VS stable w/HR in the 70's & BP this AM 105/72. Pt's R radial site intact w/dressing C/D/I. Site is
ecchymotic but has no signs or symptoms of bleeding or hematoma. Plan of care ongoing.
[2024-05-10 08:23] VITALS: BP 105/72
[2024-05-10 08:25] LABS: ACT-LR - POC > 397 Seconds (116-155)
[2024-05-10] MEDS: STRIVERDI RESPIMAT 2 PUFF INH (08:39)
[2024-05-10] MEDS: SPIRIVA RESPIMAT 2.5 MCG 2 PUFF INH (08:40)
[2024-05-10] MEDS: TOPROL XL 12.5 MG PO (08:51)
[2024-05-10] MEDS: LOW STRENGTH ASPIRIN 81 MG PO (08:51)
[2024-05-10] MEDS: BRILINTA 90 MG PO (08:51)
[2024-05-10] MEDS: PROSCAR 5 MG PO (08:52)
[2024-05-10] MEDS: LIPITOR 40 MG PO (08:52)
[2024-05-10] MEDS: PEPCID 20 MG PO (08:52)
--- NOTE | 2024-05-10 09:47 | VATNOTE ---
This VAT RN asked by pt's primary RN to assess L AC. Pt had an IV there, but it was taken out yesterday. This AM pt woke up and area that IV was located in is red and painful with a 'hard lump' under the skin. Area does look red and swollen. Pain
upon palpation of area. Spoke to pt's primary RN and suggested alternating heat and cold. Md to assess when they see the pt. Will continue to monitor.
--- NOTE | 2024-05-10 11:30 | W.PN.CD ---
Addendum entered and electronically signed by Hoang Ureña MD 05/12/24 08:19:
CDI Clarification:
Patient presented with STEMI and was taken to [facility].
05/06 progress note states 'Procedure complicated by VT, terminated by cough. Amiodarone 150 mg and Mg 2g given intraprocedure Hypotension requiring norepinephrine, started in the [facility].
Please clarify which of the following is the most likely etiology of the above symptoms and treatment rendered:
Cardiogenic shock
Addendum entered and electronically signed by Hoang Ureña MD 05/10/24 11:49:
Will not place patient back on cilostazol now that he is on aspirin/Brilinta.
Original Note:
Today's Communication / Plan
-
-Residual LAD disease, but FFR negative on cardiac catheterization yesterday (05/09/24).
-Continue Toprol-XL 12.5 mg daily; further GDMT limited by blood pressure.
-Will see if patient can afford an SGLT2 inhibitor.
-Stable for discharge to home today; outpatient follow-up with Cardiology.
Impression / Plan
-
Impression/Plan: 69 y/o male with HTN, HLD, PAD, tobacco abuse having recently quit after a bout of PNA and subsequent COPD presenting with inferior STEMI, found to have acute LCx occlusion, residual LAD disease and combined ischemic/non-ischemic
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
#STEMI
-Acute.
-S/P PCI of the mLCX (Xience Skypoint 3.5 x 18 ALPA, post dilated with a 3.5 NCB throughout, 4.0 NCB in the mid stent and 4.5 NCB in the proximal stent).
-Procedure complicated by VT, terminated by cough. Amiodarone 150 mg and Mg 2g given intraprocedure.
-Residual LAD disease, but FFR negative on cardiac catheterization yesterday (05/09/24).
-Continue DAPT with aspirin and ticagrelor.
#Residual CAD
-Cath shows tandem 70%, 40-50% mLAD lesions.
-Plan interrogation/revascularization on 05/09/2024.
#Acute HFrEF/ischemic cardiomyopathy (EF 35-40%)
-New diagnosis.
-LVEF = 35% on V-Gram.
-Technically difficult echo; estimated ejection fraction 40%.
-Continue Toprol-XL 12.5 mg daily; further GDMT limited by blood pressure.
-Will see if patient can afford an SGLT2 inhibitor.
#HTN
-Controlled.
#HLD
-Controlled.
-Continue atorvastatin 40 mg daily.
-Goal LDL < 55.
#PAD
-Chronic, stable.
-Continue cilostazole.
#Tobacco abuse/COPD
-Recently quit.
-Currently getting a course of antibiotics (amoxicillin-clavulanate).
-Continue inhaled corticosteroids/long acting bronchodilators.
Subjective/Interval history:
No major events overnight. No cardiac complaints this a.m..
DATA:
Cardiac Catheterization/PCI, 05/06/2024:
CONCLUSIONS
1. Right dominant circulation with luminal irregularities in the RCA, a 70% stenosis in the mid LAD between D1 and D2 and a 40-50% lesion after the takeoff of D2, a 20% proximal circumflex lesion and an acute occlusion of the mid circumflex
immediately proximal to the origin of OM 2, status post accessible PCI (Xience Skypoint 3.5 x 18 ALPA, postdilated with a 3.5 NC balloon throughout, a 4.0 x 12 NC balloon in the mid section and a 4.5 x 8 NC balloon in the proximal margin) with
reduction in stenosis to 0% and presybeterian of UMA-3 flow.
2. Normal filling pressures (LVEDP = 12 mmHg at 76.7 kg).
3. 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 Left trickle ejection fraction estimated at 35%.
4. Severe hypotension requiring norepinephrine for blood pressure support.
Physical Exam
Vital Signs/Labs
Vital Signs
Temp Pulse Resp BP Pulse Ox
98.2 F 76 16 105/72 96
05/10/24 08:21 05/10/24 10:00 05/10/24 08:46 05/10/24 08:23 05/10/24 10:05
05/10/24 04:22
05/10/24 04:22
PT 13.9 Sec (11.4-14.6) 05/06/24 02:16
INR 1.07 05/06/24 02:16
Magnesium 2.1 mg/dl (1.6-2.3) 05/07/24 04:57
Triglycerides < 30 mg/dl (10-149) 05/06/24 05:12
LDL Cholesterol, Calc mg/dl 05/06/24 05:12
VLDL Cholesterol, Calc mg/dl (0-30) 05/06/24 05:12
HDL Cholesterol 54 mg/dl 05/06/24 05:12
Physical Exam
Constitutional: No acute distress and Comfortable
EENT: Anicteric
Cardiovascular: Rhythm & rate is regular, Pedal edema is absent, Systolic murmur absent and S1S2 is normal
Respiratory: Respiratory effort normal and Lungs clear to auscul.
GI: Soft
Neuro/Psych: AO x 3
Other: Skin (Mild swelling/erythema in left antecubital region at previous IV site.)
Data Reviewed
-
Date of Service: May 10, 2024
EKG: Tracing Personally Visualized and interpreted (Telemetry: Sinus rhythm)
Echo: Report Reviewed by me (EF 40%)
Labs: Labs Reviewed by me
[2024-05-10 11:50] VITALS: BP 118/71
--- NOTE | 2024-05-10 14:18 | PN.CDI ---
CDI
- -
CDI:
Physician Documentation Request
Admit Date: 05/06/24 04:04
Dear Doctor Niranjan,
Patient presented with STEMI and was taken to [facility].
05/06 progress note states 'Procedure complicated by VT, terminated by cough. Amiodarone 150 mg and Mg 2g given intraprocedure Hypotension requiring norepinephrine, started in the [facility].
Please clarify which of the following is the most likely etiology of the above symptoms and treatment rendered:
Cardiogenic shock
Shock, unknown type
Hypotension only
Other
Use of terms such as suspected, likely, concern for, or probable (associated with a specific diagnosis that is being evaluated, monitored, or treated as if it exists) are acceptable and can be coded in the inpatient setting, when documented at the
time of discharge.
Thank you,
Paloma Olsen RN, BSN
CDI Specialist
tiger text
Please use your independent medical judgment in providing your response.
--- NOTE | 2024-05-10 14:22 | CM ---
priced meds with pts insur co ([employer]- [id number]- [phone])
Brilinta- $69/mo
Farxiga $279/mo
Jardiance $93/mo
pt tells me his income is low, i inquired into [place] [employer] [place] and pt will qualify for free Farxiga and brilinta.
pt given free 30 day coupons for brilinta and faxiga-- asst plan applic filled out and both scripts signed by Sara Conroy NP - appplic faxed to [employer] [facility].
pt given f/u with [facility] in a week or two to make sure medications will be delivered and knows to tell his cardiol if it gets delayed and the importance of not missing any doses of brilinta.
pt verbalized understanding
--- NOTE | 2024-05-10 14:24 | W.DS.TRANS ---
DC Summary - Lpn
-
Discharge Instructions:
Discharge Diagnosis/Procedures STEMI
Angioplasty and stent to left circumflex artery
05/06/2024
Diet Low Cholesterol,Low Sodium
Activity No strenuous activity
Additional Activity No strenuous activity or heavy lifting for 2
weeks
Driving Restrictions No driving for 24 hours
Bathing Restrictions None
Other Services Cardiac Rehab
Specialty Instructions Weigh Daily
Instructions:
Stand-Alone Forms: DC Instructions- Cath/EP Lab
Changes to Home Medications: Yes
Discharge Medications:
DC Medications w/original date entered in [facility]
aspirin 81 mg chewable tablet 81 mg PO DAILY 05/06/24
atorvastatin 40 mg tablet 40 mg PO DAILY 05/06/24
finasteride 5 mg tablet 5 mg PO DAILY 05/06/24
tamsulosin 0.4 mg capsule 0.4 mg PO DAILY 05/06/24
umeclidinium 62.5 mcg-vilanterol 25 mcg/actuation powdr for inhalation (Anoro Ellipta) 1 inh inhalation DAILY 05/06/24
dapagliflozin propanediol 10 mg tablet (Farxiga) 10 mg PO DAILY #30 tabs 05/10/24
metoprolol succinate 25 mg tablet,extended release 24 hr 12.5 mg (1/2 x 25 mg) PO DAILY #30 tabs 05/10/24
nitroglycerin 0.4 mg sublingual tablet 0.4 mg sublingual [id number] PRN chest pain #25 tabs 05/10/24
ticagrelor 90 mg tablet (Brilinta) 90 mg PO BID #60 tabs 05/10/24
Home Medication Changes
new to brilinta, nitro sl, metoprolol, farxiga
Pending Results: No
--- NOTE | 2024-05-10 14:25 | PTCARENOTE ---
Pt discharged to home w/friend providing transportation. 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
== END 2024-05-10 14:57 | disposition home or self-care (01) | DRG 321 ==
LOC: IVU 04:04
PROVIDERS: Nurse Practitioner; ADMITTING PHYSICIAN Internal Medicine Cardiovascular Disease; EMERGENCY PHYSICIAN Student in an Organized Health Care Education/Training Program
PROC: 3E073KZ Introduction of Other Diagnostic Substance into Coronary Artery, Percutaneous Approach (ICD-10-PCS; 2024-05-06)
PROC: 027034Z Dilation of Coronary Artery, One Artery with Drug-eluting Intraluminal Device, Percutaneous Approach (ICD-10-PCS; 2024-05-06)
PROC: B2151ZZ Fluoroscopy of Left Heart using Low Osmolar Contrast (ICD-10-PCS; 2024-05-06)
PROC: B2111ZZ Fluoroscopy of Multiple Coronary Arteries using Low Osmolar Contrast (ICD-10-PCS; 2024-05-06)
PROC: 4A023N7 Measurement of Cardiac Sampling and Pressure, Left Heart, Percutaneous Approach (ICD-10-PCS; 2024-05-06)
PROC: 4A033BC Measurement of Arterial Pressure, Coronary, Percutaneous Approach (ICD-10-PCS; 2024-05-09)
DX: I21.19 ST elevation (STEMI) myocardial infarction involving other coronary artery of inferior wall (principal); I50.21 Acute systolic (congestive) heart failure; R57.0 Cardiogenic shock; I47.20 Ventricular tachycardia, unspecified; I42.8 Other cardiomyopathies; I11.0 Hypertensive heart disease with heart failure; J44.9 Chronic obstructive pulmonary disease, unspecified; N40.0 Benign prostatic hyperplasia without lower urinary tract symptoms; I73.9 Peripheral vascular disease, unspecified; E78.00 Pure hypercholesterolemia, unspecified; I34.0 Nonrheumatic mitral (valve) insufficiency; I25.10 Atherosclerotic heart disease of native coronary artery without angina pectoris; I25.5 Ischemic cardiomyopathy; Z87.891 Personal history of nicotine dependence; Z87.01 Personal history of pneumonia (recurrent); Z79.82 Long term (current) use of aspirin
CPT/HCPCS: 36620; 80048; 80053; 80061; 83036; 83735; 84484; 85025; 85027; 85347; 85610; 93005; 93306; 93454; 93458; 93571; 94640; 96365; 96366; 99152; 99153; 99285; C1725; C1769; C1874; C1894; C9606; J1327; Q9950; Q9967

== ENCOUNTER → 2024-06-28 12:01 | Outpatient (REF) | payer MEDICARE, OTHER, SELFPAY ==
--- NOTE | 2024-06-28 14:06 | CARDSERVLU ---
Echocardiogram with [facility] completed after protocol screening completed. Allergies verified.
Patent IV site: __new start 22P RFA___
IV site flushed with 0.9% NaCl pre and post administration.
Diluted bolus method utilized to enhance visualization of ventricular galvin.
Total volume given: __4.0__ mL
site dcd at completion of test.
Patient tolerated all procedures well without complications.
== END ==
LOC: RCS 12:01
PROVIDERS: ATTENDING PHYSICIAN Nurse Practitioner; FAMILY PHYSICIAN Physician Assistant Medical
DX: I25.10 Atherosclerotic heart disease of native coronary artery without angina pectoris (principal); I25.5 Ischemic cardiomyopathy; I47.20 Ventricular tachycardia, unspecified
CPT/HCPCS: 93306; Q9950